=== PATIENT | male | born 1985 | race Hispanic/Latino ===

== ENCOUNTER → 2018-12-10 | Outpatient (CLI) | payer OTHER ==
--- NOTE | 2018-12-10 16:19 | Diagnostic Imaging Report ---
TECHNIQUE: Magnetic resonance imaging of the LEFT ELBOW was performed WITHOUT injected contrast. HISTORY: Pain COMPARISON: None available. FINDINGS: Ligaments and tendons: The medial and lateral collateral ligament complexes are intact. The common flexor tendon group and common extensor tendon group origins at the humeral epicondyles are intact. Mild edema just distal to the common flexor pronator origin involving the flexor carpi ulnaris and flexor digitorum (axial image 20 and coronal image 9-12) The distal biceps tendon, triceps tendon and brachialis tendon are intact. Ulnar nerve: Within the bicipital groove. Accessory anconeus epitrochlearis. Bone and bone marrow: No focal or infiltrative bone marrow replacing abnormality. No acute fracture. Articular cartilage: No focal lesions are seen. Soft tissues: Otherwise, unremarkable. IMPRESSION: Mild edema/strain involving the flexor carpi ulnaris and flexor digitorum just distal to the common flexor pronator origin which is intact. Signed by: Dr. Atif Stevens M.D. on 12/10/2018 4:16 PM
== END ==
LOC: MRI 14:38
PROVIDERS: ATTEND Family Medicine
DX: M77.02 Medial epicondylitis, left elbow (principal)